=== PATIENT | male | born 1980 | race Caucasian/White ===

== ENCOUNTER 2018-05-22 18:59 | Emergency (ER) | END 2018-05-22 22:33 | disposition home or self-care (01) ==

== ENCOUNTER 2018-06-03 09:53 | Emergency (ER) | END 2018-06-03 11:40 | disposition home or self-care (01) ==

== ENCOUNTER 2018-09-16 11:46 | Emergency (ER) | payer BC ==
[~2018-09-16] VITALS: Wt 70.2 kg
[~2018-09-16 11:46] MED LIST: IBUP-1542 PO; OMEP20CA16 PO
[2018-09-16] MEDS ORDERED: HYDROmorphONE 0.5 MG/0.5 ML SYG IM STA (13:28)
[2018-09-16] MEDS ORDERED: KETOROLAC 60 MG INJ IM STA (13:28)
[2018-09-16] MEDS ORDERED: HYDR-4011 PO (15:37)
[2018-09-16] MEDS ORDERED: PRED20TA PO (15:37)
[2018-09-16] MEDS ORDERED: IBUP-1542 PO (15:37)
--- NOTE | 2018-09-16 15:40 | ERD ---
ER Documentation Chief Complaint Chief Complaint bib self cc: bilateral leg / feet numbness / lower back pain, hxbulging dsc HPI 38-year-old male presents with worsening low back pain rating to bilateral legs for the last 3 days. Denies any lifting, fall, inciting events. He has a history of intermittent low back pain MRI which showed he had unspecified bulging disks. He denies any bowel or bladder incontinence, weakness. ROS All systems reviewed and are negative except as per history of present illness. Medications Home Meds Active Scripts Prednisone* (Prednisone*) 20 Mg Tab, 40 MG PO DAILY for 5 Days, TAB Prov:OSMAN CLEMENTS MD 09/16/18 Ibuprofen* (Motrin*) 600 Mg Tab, 600 MG PO Q6, #20 TAB Prov:OSMAN CLEMENTS MD 09/16/18 Hydrocodone/Acetaminophen ([place] 5-325 Tablet) 1 Each Tablet, 1 TAB PO Q6H PRN for PAIN, #14 TAB Prov:OSMAN CLEMENTS MD 09/16/18 Ibuprofen* (Motrin*) 600 Mg Tab, 600 MG PO Q6H PRN for PAIN AND OR ELEVATED TEMP, #20 TAB Prov:YASH BASILIO MD 05/22/18 Reported Medications Omeprazole* (Omeprazole*) 20 Mg Capsule.dr, 20 MG PO DAILY, CAP 06/04/15 Allergies Allergies: Coded Allergies: No Known Allergies (Verified Allergy, Unknown, 01/14/15) PMhx/Soc History of Surgery: Yes (RIGHT FOOT SX) Anesthesia Reaction: No Hx Neurological Disorder: No Hx Respiratory Disorders: No Hx Cardiac Disorders: No Hx Psychiatric Problems: No Hx Miscellaneous Medical Probl: No Hx Alcohol Use: Yes Hx Substance Use: No Hx Tobacco Use: Yes Smoking Status: Current every day smoker FmHx Family History: No diabetes, No coronary disease, No other Physical Exam Vitals Vital Signs Date Temp Pulse Resp B/P (MAP) Pulse Ox O2 O2 Flow FiO2 Time Delivery Rate 09/16/18 97.7 60 18 125/81 98 Room Air 15:55 (96) 09/16/18 98.2 89 19 126/81 100 12:07 (96) Physical Exam Const: No acute distress. Uncomfortable due to pain. Head: Atraumatic Eyes: Normal Conjunctiva ENT: Normal External Ears, Nose and Mouth. Neck: Full range of motion. No meningismus. Resp: Clear to auscultation bilaterally Cardio: Regular rate and rhythm, no murmurs Abd: Soft, non tender, non distended. Normal bowel sounds Skin: No petechiae or rashes Back: No midline or flank tenderness. Tenderness diffusely L4-L5 area. No midline tenderness or deformities. Ext: No cyanosis, or edema Neur: Awake and alert. Ambulatory with difficulty due to pain although no deficits or weakness. Psych: Normal Mood and Affect Results 24 hrs Current Medications Medications Dose Sig/[place] Start Time Status Last (Trade) Ordered Route PRN Stop Time Admin Dose Reason Admin Ketorolac 60 mg ONCE STAT 09/16/18 DC 09/16/18 Tromethamine IM 13:28 13:40 (Toradol) 09/16/18 13:29 1 mg ONCE STAT 09/16/18 DC 09/16/18 Hydromorphone IM 13:28 13:36 HCl 09/16/18 13:29 (Dilaudid) Procedures/MDM Patient was given Dilaudid 1 mg IM and Toradol [address] spine shows discogenic changes at L5-S1 with anterioriolisthesis, bilateral foraminal stenosis. Spinal canal patent. Patient is improved after observation treatment. Patient presents with acute onset low back pain with sciatica bilaterally without evidence for signs or symptoms of cauda equina syndrome, epidural abscess, deficits. He will be discharged home with a short course of [place], Flexeril, ibuprofen, instructions for back exercises, primary care follow-up and return precautions. Patient was advised he may need authorization from primary doctor for specialist visit. The patient was stable with no new complaints during the ER course. Clinically, there is no current evidence to suggest meningitis, sepsis, acute abdomen, pneumonia, stroke, acute coronary syndrome, pulmonary embolism, aortic dissection or any other emergent condition appearing to require further evaluation or hospitalization. Patient counseled regarding my diagnostic impression and care plan. Prior to discharge all questions answered. Pt agrees with treatment plan and understands strict return precautions. Pt is instructed to follow up with primary care provider within 24-48 hours. Precautionary instructions provided including instructions to return to the ER if not improving or for any worsening or changing symptoms or concerns. Departure Diagnosis: Primary Impression: Back pain Back pain location: low back pain Chronicity: acute Back pain laterality: bilateral Sciatica presence: with sciatica Sciatica laterality: bilateral sciatica Qualified Codes: M54.42 - Lumbago with sciatica, left side; M54.41 - Lumbago with sciatica, right side Condition: Stable Patient Instructions: Back Pain W/ Sciatica Referrals: DOCTOR,NOT ON STAFF (PCP) Additional Instructions: See primary doctor for further evaluation and treatment. Recheck otherwise for new or worsening symptoms-fevers, weakness, incontinence. May need authorization from primary doctor for specialist visit. OSMAN CLEMENTS MD Sep 16, 2018 15:40
[2018-09-16 15:55] VITALS: BP 125/81; PULSE 60; RESP 18
== END 2018-09-16 15:58 | disposition home or self-care (01) ==
LOC: FTE 11:46
DX: M54.41 Lumbago with sciatica, right side (principal); M54.42 Lumbago with sciatica, left side; F17.210 Nicotine dependence, cigarettes, uncomplicated
CPT/HCPCS: 72131; 96372; J1170; J1885; Z7502